=== PATIENT | male | born 1950 | race Caucasian/White ===

== ENCOUNTER 2024-05-04 08:51 | Emergency (ER) | payer OTHER ==
[~2024-05-04] VITALS: Ht 182.9 cm; Wt 99.0 kg
[2024-05-04] MEDS ORDERED: AZIT250T83 PO (10:24)
[2024-05-04] MEDS ORDERED: ALBU8HFA INH (10:24)
[2024-05-04] MEDS ORDERED: PRED50TA PO (10:24)
[2024-05-04] MEDS ORDERED: PROM118S5 PO (10:24)
[2024-05-04 10:31] VITALS: BP 136/76; PULSE 74; RESP 18; TEMP 98.8; O2SAT 96
== END 2024-05-04 10:46 | disposition home or self-care (01) ==
LOC: ER 08:55
DX: J06.9 Acute upper respiratory infection, unspecified (principal); Z20.822 Contact with and (suspected) exposure to COVID-19
CPT/HCPCS: 36415; 71045; 87502; 87503; 87811; 99284